=== PATIENT | female | born 1960 | race Caucasian/White ===

== ENCOUNTER 2017-04-14 05:18 | Inpatient (IN) | payer BC ==
[2017-04-05 15:34] VITALS: BP 130/85
[~2017-04-14] VITALS: Ht 162.6 cm; Wt 74.6 kg
[~2017-04-14 05:18] MED LIST: LOSA25TA5 PO; ROSU10TA PO
[2017-04-14] MEDS ORDERED: LACTATED RINGERS 1,000 ML IV SCH (06:35)
[2017-04-14] MEDS ORDERED: LIDOCAINE 1%, 2ML ONE (06:37)
[2017-04-14] MEDS ORDERED: INDOCYANINE GREEN 25 MG VIAL ONE (06:52)
[2017-04-14] MEDS ORDERED: cloniDINE/PF 100 MCG/ML, 10 ML ONE (06:56)
[2017-04-14] MEDS ORDERED: BUPIVACAINE/PF-EPI 0.25% 1:200K ONE ×2 (06:56→07:04)
[2017-04-14] MEDS ORDERED: LIDOCAINE 1%, 2ML SQ PRN (07:00)
[2017-04-14] MEDS ORDERED: BUPIVACAINE/PF 0.5% ONE (07:06)
[2017-04-14] MEDS ORDERED: KETAMINE 10 MG/ML, 20ML ONE (07:09)
[2017-04-14] MEDS ORDERED: HYDROmorphone 1 MG/ML, 1ML ONE (07:09)
[2017-04-14] MEDS ORDERED: FENTANYL PF 250 MCG/5ML ONE (07:09)
[2017-04-14] MEDS ORDERED: MIDAZOLAM 1 MG/ML, 2ML ONE (07:10)
[2017-04-14] MEDS ORDERED: SCOPOLAMINE PATCH, 1.5MG PATCH.TD72 TD ONE ×2 (07:18→11:02)
[2017-04-14] MEDS ORDERED: NEOSTIGMINE 1 MG/ML, 10ML ONE (07:37)
[2017-04-14] MEDS ORDERED: EPHEDRINE 50 MG/ML, 1ML ONE (07:37)
[2017-04-14] MEDS ORDERED: PROPOFOL 10 MG/ML, 50ML ONE (07:37)
[2017-04-14] MEDS ORDERED: GLYCOPYRROLATE 0.2MG/1ML ONE (07:37)
[2017-04-14] MEDS ORDERED: PROPOFOL 10 MG/ML, 20ML ONE (07:37)
[2017-04-14] MEDS ORDERED: CEFOTETAN 1 GM ONE (07:37)
[2017-04-14] MEDS ORDERED: DEXAMETHASONE 4 MG/ML, 1ML ONE (07:37)
[2017-04-14] MEDS ORDERED: PHENYLEPHRINE 10 MG/ML ONE (07:37)
[2017-04-14] MEDS ORDERED: ROCURONIUM 10 MG/ML ONE (07:37)
[2017-04-14] MEDS ORDERED: OXYcodone 5 MG/5 ML ORAL.SOL UDC PO PRN ×2 (09:00→12:00)
[2017-04-14] MEDS ORDERED: HYDROmorphone 1 MG/ML, 1ML IV PRN ×2 (09:00→12:00)
[2017-04-14] MEDS ORDERED: LABETALOL 5MG/ML, 20ML IV PRN (09:00)
[2017-04-14] MEDS ORDERED: ACETAMINOPHEN 325 MG TABLET PO PRN ×2 (09:00→12:00)
[2017-04-14] MEDS ORDERED: EPHEDRINE 50 MG/ML, 1ML IVPush PRN (09:00)
[2017-04-14] MEDS ORDERED: MEPERIDINE/PF 25MG/0.5ML IVPush PRN (09:00)
[2017-04-14] MEDS ORDERED: FENTANYL PF 100 MCG/2ML IV PRN (09:00)
[2017-04-14] MEDS ORDERED: ONDANSETRON 2MG/ML, 2ML IVPush PRN (09:00)
[2017-04-14] MEDS ORDERED: PROMETHAZINE 25 MG/ML, 1ML IV PRN (09:00)
[2017-04-14] MEDS ORDERED: ALBUTEROL/IPRATROPIUM 2.5MG/0.5MG, 3 ML NPPB PRN (09:00)
[2017-04-14] MEDS ORDERED: hydrALAzine 20 MG/ML, 1ML IV PRN (09:00)
[2017-04-14] MEDS ORDERED: MIDAZOLAM 1 MG/ML, 2ML IV PRN (09:00)
[2017-04-14] MEDS ORDERED: KETOROLAC 30 MG/1 ML ONE (10:19)
[2017-04-14] MEDS: KETOROLAC 30 MG/1 ML IVPush SCH ×3 (10:21→23:18)
[2017-04-14 11:15] VITALS: BP 113/73
[2017-04-14] MEDS ORDERED: LORazepam 2 MG/ML, 1ML IV PRN (12:00)
[2017-04-14] MEDS ORDERED: ACETAMINOPHEN 650 MG SUPP PR PRN (12:00)
[2017-04-14] MEDS: POTASSIUM CHLORIDE 20 MEQ in D5%-0.45% NACL 1,000 ML IV SCH (12:47)
[2017-04-14] MEDS: ACETAMINOPHEN 500 MG TABLET PO SCH ×3 (12:47→23:18)
[2017-04-14 14:00] VITALS: BP 102/68
[2017-04-14] MEDS: ENOXAPARIN 40 MG/0.4 ML SQ SCH (17:47)
[2017-04-14] MEDS: FAMOTIDINE 20 MG TABLET PO SCH (20:20)
[2017-04-14] MEDS: SIMVASTATIN 40 MG TABLET PO SCH (20:21)
[2017-04-14] MEDS: CEFOTETAN PMX 2GM/50ML 50 ML IVPB SCH (20:21)
[2017-04-14] MEDS: SODIUM CHLORIDE FLUSH 10ML SYR IVF SCH (20:21)
[2017-04-14] MEDS: LORazepam 1MG TABLET PO PRN (23:18)
[2017-04-15 00:09] VITALS: BP 98/55
[2017-04-15 03:38] VITALS: BP 107/70
[2017-04-15] MEDS: KETOROLAC 30 MG/1 ML IVPush SCH ×4 (05:11→23:33)
[2017-04-15] MEDS: ACETAMINOPHEN 500 MG TABLET PO SCH ×4 (05:11→23:33)
[2017-04-15 05:23] LABS: BLOOD UREA NITROGEN 14 mg/dL (7-18)
[2017-04-15 07:20] VITALS: BP 118/74
[2017-04-15 08:20] VITALS: BP 127/82
[2017-04-15] MEDS: CEFOTETAN PMX 2GM/50ML 50 ML IVPB SCH (08:29)
[2017-04-15] MEDS: FAMOTIDINE 20 MG TABLET PO SCH ×2 (08:29→21:35)
[2017-04-15] MEDS: LOSARTAN 25MG TABLET PO SCH (08:31)
[2017-04-15] MEDS: SODIUM CHLORIDE FLUSH 10ML SYR IVF SCH ×2 (08:31→21:35)
[2017-04-15] MEDS: POTASSIUM CHLORIDE 20 MEQ in D5%-0.45% NACL 1,000 ML IV SCH (08:31)
[2017-04-15 12:15] VITALS: BP 153/79
[2017-04-15] MEDS: ENOXAPARIN 40 MG/0.4 ML SQ SCH (18:25)
[2017-04-15 19:53] VITALS: BP 111/73
[2017-04-15] MEDS: SIMVASTATIN 40 MG TABLET PO SCH (21:35)
[2017-04-15] MEDS: LORazepam 1MG TABLET PO PRN (23:33)
[2017-04-16 02:35] VITALS: BP 106/72
[2017-04-16] MEDS: POTASSIUM CHLORIDE 20 MEQ in D5%-0.45% NACL 1,000 ML IV SCH (04:24)
[2017-04-16 05:35] LABS: BLOOD UREA NITROGEN 20 mg/dL (7-18)
[2017-04-16] MEDS: ACETAMINOPHEN 500 MG TABLET PO SCH (05:42)
[2017-04-16] MEDS: KETOROLAC 30 MG/1 ML IVPush SCH ×2 (05:42→11:30)
[2017-04-16] MEDS: LOSARTAN 25MG TABLET PO SCH (08:46)
[2017-04-16] MEDS: FAMOTIDINE 20 MG TABLET PO SCH (08:46)
[2017-04-16] MEDS: SODIUM CHLORIDE FLUSH 10ML SYR IVF SCH (08:46)
[2017-04-16 10:03] VITALS: BP 137/76
[2017-04-16] MEDS ORDERED: OXYC-302 PO (10:23)
== END 2017-04-16 10:40 | disposition home or self-care (01) | DRG 392 ==
LOC: ORIP 06:00 → 4NOR 11:10
PROVIDERS: ADMIT Surgery; ATTEND Surgery
DX: K57.92 Diverticulitis of intestine, part unspecified, without perforation or abscess without bleeding (principal)
CPT/HCPCS: 36415; 80048; 82040; 85025; 86850; 86900; 88307; J1100; J1170; J1650; J1885; J2250; J2704; J2710; J3010; J3480; J3490; J0735; J2370; J7120; S0074

== ENCOUNTER → 2018-06-02 | Outpatient (CLI) | payer BC ==
[~2018-06-02] MED LIST changes: +OXYC-302 PO
== END | disposition home or self-care (01) ==
LOC: CVU 07:13
PROVIDERS: ATTEND Internal Medicine Critical Care Medicine
DX: I10 Essential (primary) hypertension (principal); I65.23 Occlusion and stenosis of bilateral carotid arteries
CPT/HCPCS: 93306; 93880